=== PATIENT | female | born 1995 | race Caucasian/White ===

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

== ENCOUNTER 2017-10-09 21:20 | Emergency (ER) | payer BC ==
[~2017-10-09] VITALS: Ht 162.6 cm; Wt 58.5 kg
[~2017-10-09 21:20] MED LIST changes: +MACROBID100 MG PO; +ZOFRAN8 MG PO
[2017-10-09 22:22] LABS: HEMATOCRIT 36.9 % (36.0-46.0); HEMOGLOBIN 12.3 G/DL (11.9-15.5); MCH 27.6 PG (29.0-34.0); MCHC 33.3 G/DL (30.0-36.0); MCV 82.9 FL (83-99); PLATELET COUNT 188 K/uL (156-360); RBC DIS.WIDTH-CV 14.8 % (11.8-14.6); RED BLOOD COUNT 4.45 M/uL (3.80-5.20); WHITE BLOOD COUNT 11.8 K/uL (4.1-10.2)
[2017-10-09 22:31] LABS: ALBUMIN 3.9 g/dL (3.2-4.8)
[2017-10-09 22:32] LABS: CHLORIDE 106 mEq/L (99-109); POTASSIUM 4.3 mEq/L (3.7-5.4); SODIUM 140 mEq/L (136-147)
[2017-10-09 22:34] LABS: GLUCOSE 97 mg/dL (70-99); TOTAL PROTEIN 7.6 g/dL (6.4-8.3)
[2017-10-09 22:36] LABS: TOTAL BILIRUBIN 2.1 mg/dL (0.0-1.0)
[2017-10-09 22:36] LABS: APPEARANCE CLOUDY ((CLEAR)); BILIRUBIN SMALL; BLOOD MODERATE; COLOR AMBER ((YELLOW)); GLUCOSE (STRIP) NEGATIVE; KETONES 20; LEUKOCYTES NEGATIVE; NITRITE NEGATIVE; PROTEIN (STRIP) 100; SPECIFIC GRAVITY 1.023 (1.000-1.030)
[2017-10-09 22:37] LABS: ALKALINE PHOSPHATASE 266 IU/L (3-129)
[2017-10-09 22:38] LABS: GFR ESTIMATE (CALCULATED) > 59 mL/min/
[2017-10-09 22:39] LABS: AST (GOT) 237 IU/L (2-34); UREA NITROGEN (BUN) 12 mg/dL (9-23)
[2017-10-09 22:40] LABS: ALT (GPT) 277 IU/L (3-49)
[2017-10-09 22:41] LABS: LIPASE 15 U/L (1.0-51.0)
[2017-10-09 22:49] LABS: QUANTITATIVE HCG < 4.0 MIU/ML
[2017-10-09 22:55] LABS: EPITHELIAL CELLS 1+ /HPF; RED BLOOD CELLS 0-5 /HPF (0-5); WHITE BLOOD CELLS 0-5 /HPF (0-5)
[2017-10-09 22:56] LABS: BACTERIA 2+ /HPF; HYALINE CASTS 0-5 /LPF; MUCUS 1+ /LPF; UCUL ADDED? YES
[2017-10-09] MEDS ORDERED: ZOFRAN4 MG PO (23:59)
[2017-10-09] MEDS ORDERED: KEFLEX500 MG PO (23:59)
[2017-10-10 00:15] VITALS: BP 124/79
[2017-10-10 01:02] LABS: MONOSPOT (MONONUCLEOSIS SEROL) POSITIVE
== END 2017-10-10 00:16 | disposition home or self-care (01) ==
LOC: EME 21:20
PROVIDERS: Physician Assistant
DX: B27.90 Infectious mononucleosis, unspecified without complication (principal); R74.0 Nonspecific elevation of levels of transaminase and lactic acid dehydrogenase [LDH]; Z88.0 Allergy status to penicillin
CPT/HCPCS: 71046; 76705; 80053; 80074; 81003; 83690; 84702; 85027; 86308; 86644 90; 87086; 99281; 99284